=== PATIENT | female | born 1955 | race Caucasian/White ===

== ENCOUNTER 2017-04-14 11:11 | Emergency (ER) | payer OTHER, SELFPAY ==
[~2017-04-14] VITALS: Ht 162.6 cm; Wt 54.7 kg
[2017-04-14 11:13] VITALS: BP 155/62
== END 2017-04-14 13:04 | disposition home or self-care (01) ==
LOC: ED 12:29
DX: R31.0 Gross hematuria (principal)
CPT/HCPCS: 36415; 74176; 80047; 81001